=== PATIENT | male | born 1960 | race Caucasian/White ===

== ENCOUNTER 2017-10-15 08:06 | Emergency (ER) | payer SELFPAY ==
[~2017-10-15] VITALS: Ht 182.9 cm; Wt 86.2 kg
[~2017-10-15 08:06] MED LIST: CLIN300C8 PO; PRED-220 PO; TRAM50TA PO
[2017-10-15] MEDS ORDERED: IBUP400T18 PO (08:37)
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
--- NOTE | 2017-10-15 09:15 | RAD ---
Left elbow, 3 views, 10/15/2017: HISTORY: Fall, pain No fracture or dislocation is identified. A tiny calcification in the soft tissues along the lateral aspect of the lateral humeral epicondyle appears old and is probably tendinous. No joint effusion is seen. IMPRESSION: No acute bony abnormality is detected. Left wrist, 3 views, 10/15/2017: No fracture or dislocation is identified. A small well-corticated calcific density along the dorsal aspect of the carpal bones is compatible with old trauma. Minimal degenerative changes are noted. IMPRESSION: No acute bony abnormality is detected. Left hand, 10/15/2017: There are degenerative changes at scattered interphalangeal joints and the first CMC joint. No acute fracture or dislocation is identified. IMPRESSION: No acute bony abnormality is detected. Left shoulder, 3 views, 10/15/2017: No fracture or dislocation is identified. There is minimal degenerative change. IMPRESSION: No acute bony abnormality is detected. Electronically signed by: Agustin Fischer MD (10/15/2017 9:12 AM) [facility]
[2017-10-15 09:35] VITALS: BP 142/102
== END 2017-10-15 09:38 | disposition home or self-care (01) ==
LOC: ER 08:06
DX: M25.532 Pain in left wrist (principal); M25.522 Pain in left elbow; M25.512 Pain in left shoulder; I10 Essential (primary) hypertension; V29.9XXA Motorcycle rider (driver) (passenger) injured in unspecified traffic accident, initial encounter; Y93.55 Activity, bike riding; Y99.8 Other external cause status; Y92.89 Other specified places as the place of occurrence of the external cause
CPT/HCPCS: 73030; 73080; 73110; 73130; 99284

== ENCOUNTER 2019-07-11 09:02 | Emergency (ER) | payer SELFPAY ==
[~2019-07-11] VITALS: Ht 182.9 cm; Wt 83.6 kg
[~2019-07-11 09:02] MED LIST changes: +IBUP400T18 PO
[2019-07-11] MEDS ORDERED: ONDANSETRON PF 4 MG/2 ML VIAL. IVP ONE (09:45)
[2019-07-11] MEDS ORDERED: IV NORMAL SALINE 1,000ML 1,000 ML IV ONE (09:45)
[2019-07-11 09:57] LABS: BASO # 0.1 x10^3/uL (0.0-0.2); BASO % 1 % (0-3); EOS # 0.5 x10^3/uL (0.0-0.7); EOS % 5 % (0-3); HEMATOCRIT 51.6 % (39.0-53.0); HEMOGLOBIN 17.7 g/dL (13.0-17.5); LYMPH # 1.9 x10^3/uL (1.0-4.8); LYMPH % 20 % (24-48); MEAN CORPUSCULAR HEMOGLOBIN 33 pg (25-35); MEAN CORPUSCULAR HGB CONC 34 g/dL (31-37); MEAN CORPUSCULAR VOLUME 95 fL (79-100); MONO # 0.6 x10^3/uL (0.0-1.1); MONO % 7 % (0-9); NEUT # 6.6 x10^3uL (1.8-7.7); NEUT % 68 % (31-73); PLATELET COUNT 251 x10^3/uL (140-400); RED BLOOD COUNT 5.44 x10^6/uL (4.30-5.70); RED CELL DISTRIBUTION WIDTH 13.7 % (11.5-14.5); WHITE BLOOD COUNT 9.7 x10^3/uL (4.0-11.0)
[2019-07-11 10:01] LABS: CALCIUM 9.2 mg/dL (8.5-10.1); CREATININE 0.7 mg/dL (0.7-1.3); GFR 116.2; POTASSIUM 4.4 mmol/L (3.5-5.1)
[2019-07-11 10:07] LABS: ALBUMIN 3.9 g/dL (3.4-5.0); ALBUMIN/GLOBULIN RATIO 1.1 (1.0-1.7); TOTAL BILIRUBIN 0.3 mg/dL (0.2-1.0); TOTAL PROTEIN 7.5 g/dL (6.4-8.2)
--- NOTE | 2019-07-11 10:13 | PHYS DOC ---
Past History Past Medical History: Heart Disease, Hypertension Past Surgical History: Other Alcohol Use: None Drug Use: None Social History Narrative: pt stated no meth for 6 months General Adult EDM: Chief Complaint: MULTIPLE COMPLAINTS HPI: HPI: Patient is a 59-year-old male who is homeless presented to ER today with abdominal pain, cramping in nature associated with nausea and diarrhea. Patient denies any blood in his stool. Patient also complaining of a dry cough. Patient denies any fever. Patient denies being exposed to anybody who had the coronavirus. Patient has a history of IV drug abuse in the past. Patient has no history of diabetes, no history of heart disease. Patient do have history of hypertension. Review of Systems: Review of Systems: Constitutional: Denies fever or chills Eyes: Denies change in visual acuity HENT: Denies nasal congestion or sore throat Respiratory: Positive for cough,no shortness of breath Cardiovascular: Denies chest pain or edema GI: POSITIVE FOR abdominal pain, nausea, vomiting and diarrhea : Denies dysuria Musculoskeletal: Denies back pain or joint pain Integument: Denies rash Neurologic: Denies headache, focal weakness or sensory changes Endocrine: Denies polyuria or polydipsia Lymphatic: Denies swollen glands Psychiatric: Denies depression or anxiety Heart Score: HEART Score for Chest Pain: HEART Score for Chest Pain Response (Comments) Value History Slighlty/Non-Suspicious 0 ECG Normal 0 Age >45 - < 65 1 Risk Factors 1 or 2 Risk Factors 1 Troponin < Normal Limit 0 Total 2 Risk Factors: Risk Factors: DM, Current or recent (<one month) smoker, HTN, HLP, family history of CAD, obesity. Risk Scores: Score 0 - 3: 2.5% MACE over next 6 weeks - Discharge Home Score 4 - 6: 20.3% MACE over next 6 weeks - Admit for Clinical Observation Score 7 - 10: 72.7% MACE over next 6 weeks - Early Invasive Strategies Current Medications: Current Meds: Current Medications Medications (Trade) Dose Ordered Sig/Hamilton Start Time Stop Time Status Last Admin Dose Admin Ondansetron HCl (Zofran) 8 mg 1X ONCE 07/11/19 09:45 07/11/19 09:46 DC 07/11/19 09:45 8 MG Sodium Chloride 1,000 ml @ 1,000 mls/hr 1X ONCE 07/11/19 09:45 07/11/19 10:44 07/11/19 09:45 1,000 MLS/HR Allergies: Allergies: Allergies Coded Allergies Type Severity Reaction Last Updated Verified No Known Drug Allergies 05/03/15 No Physical Exam: PE: Constitutional: Well developed, well nourished, no acute distress, non-toxic appearance. [] HENT: Normocephalic, atraumatic, bilateral external ears normal, oropharynx moist, no oral exudates, nose normal. [] Eyes: PERRLA, EOMI, conjunctiva normal, no discharge. [] Neck: Normal range of motion, no tenderness, supple, no stridor. [] Cardiovascular:Heart rate regular rhythm, no murmur [] Lungs & Thorax: Bilateral breath sounds clear to auscultation [] Abdomen: Bowel sounds normal, soft, There is tenderness to palpation in lower abdominal area, no masses, no pulsatile masses. [] Skin: Warm, dry, no erythema, no rash. [] Back: No tenderness, no CVA tenderness. [] Extremities: No tenderness, no cyanosis, no clubbing, ROM intact, no edema. [] Neurologic: Alert and oriented X 3, normal motor function, normal sensory function, no focal deficits noted. [] Psychologic: Affect normal, judgement normal, mood normal. [] Current Patient Data: Labs: Laboratory Tests Test 07/11/19 09:33 White Blood Count 9.7 x10^3/uL (4.0-11.0) Red Blood Count 5.44 x10^6/uL (4.30-5.70) Hemoglobin 17.7 g/dL (13.0-17.5) H Hematocrit 51.6 % (39.0-53.0) Mean Corpuscular Volume 95 fL (79-100) Mean Corpuscular Hemoglobin 33 pg (25-35) Mean Corpuscular Hemoglobin Concent 34 g/dL (31-37) Red Cell Distribution Width 13.7 % (11.5-14.5) Platelet Count 251 x10^3/uL (140-400) Neutrophils (%) (Auto) 68 % (31-73) Lymphocytes (%) (Auto) 20 % (24-48) L Monocytes (%) (Auto) 7 % (0-9) Eosinophils (%) (Auto) 5 % (0-3) H Basophils (%) (Auto) 1 % (0-3) Neutrophils # (Auto) 6.6 x10^3uL (1.8-7.7) Lymphocytes # (Auto) 1.9 x10^3/uL (1.0-4.8) Monocytes # (Auto) 0.6 x10^3/uL (0.0-1.1) Eosinophils # (Auto) 0.5 x10^3/uL (0.0-0.7) Basophils # (Auto) 0.1 x10^3/uL (0.0-0.2) Sodium Level 139 mmol/L (136-145) Potassium Level 4.4 mmol/L (3.5-5.1) Chloride Level 103 mmol/L (98-107) Carbon Dioxide Level 26 mmol/L (21-32) Anion Gap 10 (6-14) Blood Urea Nitrogen 17 mg/dL (8-26) Creatinine 0.7 mg/dL (0.7-1.3) Estimated GFR (Cockcroft-Gault) 116.2 BUN/Creatinine Ratio 24 (6-20) H Glucose Level 100 mg/dL (70-99) H Calcium Level 9.2 mg/dL (8.5-10.1) Total Bilirubin 0.3 mg/dL (0.2-1.0) Aspartate Amino Transferase (AST) 22 U/L (15-37) Alanine Aminotransferase (ALT) 29 U/L (16-63) Alkaline Phosphatase 76 U/L (46-116) Total Protein 7.5 g/dL (6.4-8.2) Albumin 3.9 g/dL (3.4-5.0) Albumin/Globulin Ratio 1.1 (1.0-1.7) Lipase 262 U/L (73-393) Vital Signs: Vital Signs Date Time Temp Pulse Resp B/P (MAP) Pulse Ox O2 Delivery O2 Flow Rate FiO2 07/11/19 09:02 99.1 74 16 156/108 (124) 99 Room Air EKG: EKG: [] Radiology/Procedures: Radiology/Procedures: [][address] [address] IMAGING REPORT Signed PATIENT: FILIBERTO GRANADOS ACCOUNT: [id number] : 1960 LOCATION: ER AGE: 59 SEX: M EXAM STATUS: REG ER ORD. PHYSICIAN: IGOR MARK DO REASON: cough PROCEDURE: CHEST AP ONLY CHEST AP ONLY Clinical indications: Cough. COMPARISON: None available. Findings: No acute lung infiltrate or pleural effusion or pulmonary edema or lung mass or pneumothorax is seen. The heart size, pulmonary vasculature, mediastinum and both sridhar are unremarkable. Impression: No acute radiographic abnormality is seen. Electronically signed by: Julianna Charles MD (07/11/2019 10:37 AM) [facility] [place] DICTATED AND SIGNED BY: JULIANNA CHARLES MD DATE: 07/11/19 1037 CC: PCP,NO; IGOR MARK DO ~ [place] [address] IMAGING REPORT Signed PATIENT: FILIBERTO GRANADOS ACCOUNT: [id number] : 1960 LOCATION: ER AGE: 59 SEX: M EXAM STATUS: REG ER ORD. PHYSICIAN: IGOR MARK DO REASON: lower abdominal pain PROCEDURE: CT ABD PELV W/ IV CONTRST ONLY EXAM: Abdomen and pelvis CT with intravenous contrast. HISTORY: Pain. TECHNIQUE: Computed tomographic images of the abdomen and pelvis were obtained following the administration of intravenous contrast. Multiplanar reformatting was performed. *One or more of the following individualized dose reduction techniques were utilized for this examination: 1. Automated exposure control. 2. Adjustment of the mA and/or kV according to patient size. 3. Use of iterative reconstruction technique. COMPARISON: None. FINDINGS: Evaluation of the lower thorax demonstrates no infiltrate or pleural effusion. There are few tiny hypodense lesions within the liver. These are too small to characterize. The gallbladder, pancreas, spleen and adrenal glands are unremarkable. There are few nonobstructing renal stones. The urinary bladder is unremarkable. There are prominent air and fluid-filled loops of small bowel within the abdomen, primarily to left of midline. There is also fluid within the colon extending to the rectum. There is distal colonic wall thickening. There aren't few small distal colonic diverticula. There is no diverticulitis. There is no free air. There is no appendicitis. There is no lymphadenopathy. There is no suspicious osseous lesion. IMPRESSION: 1. Suspected enteritis and distal colitis with associated prominent fluid-filled loops of bowel which can be seen with diarrhea. No convincing transition point is seen to suggest small bowel obstruction. However, there may be a component of ileus. 2. Tiny hypodense lesions within the liver. These are too small to characterize and likely cysts or hemangiomas if there is no history of primary malignancy. 3. Bilateral nephrolithiasis. 4. Few colonic diverticula. Electronically signed by: Fiona Langston MD (07/11/2019 11:58 AM) [facility] DICTATED AND SIGNED BY: FIONA LANGSTON MD DATE: 07/11/19 4242 CC: PCPJESSICA; IGOR MARK DO ~ Course & Med Decision Making: Course & Med Decision Making Pertinent Labs and Imaging studies reviewed. (See chart for details) [] Dragon Disclaimer: Dragon Disclaimer: This electronic medical record was generated, in whole or in part, using a voice recognition dictation system. Departure Departure: Impression: Primary Impression: Colitis Disposition: HOME, SELF-CARE Condition: STABLE Referrals: PCPJESSICA (PCP) follow up with your doctor next week for reevaluation. Patient Instructions: Colitis Additional Instructions: Thank you for visiting our Emergency Department. We appreciate you trusting us with your care. If any additional problems come up don't hesitate to return to visit us. Please follow up with your primary care provider so they can plan additional care if needed and know about the problem that you had. If symptoms worsen come back to the Emergency Department. Any concerning symptoms that start such as chest pain, shortness of air, weakness or numbness on one side of the body, running high fevers or any other concerning symptoms return to the ER. Scripts Ondansetron Hcl (ZOFRAN) 8 Mg Tablet 1 TAB PO Q8HRS for nausea, #15 TAB 1 Refill Prov: IGOR MARK DO 07/11/19 Metronidazole (FLAGYL) 500 Mg Tablet 500 MG PO TID for colitis for 7 Days, #21 TAB Prov: IGOR MARK DO 07/11/19 Ciprofloxacin Hcl (CIPRO) 500 Mg Tablet 1 TAB PO BID for colitis for 7 Days, #14 TAB 0 Refills Prov: IGOR MARK DO 07/11/19 COVID-19 Assessment COVID-19 Patient Risks: Age 65 or older: No Sign of co-morbidity: No Exp to person + for COVID: No Exp to PUI: No Travel from affected area: No Lower respiratory symptoms: No Fever: No Other: No PPE Use: Full PPE with N95 mask or PAPR: Yes (PAPR WITH FULL PPE) IGOR MARK DO Jul 11, 2019 10:13
--- NOTE | 2019-07-11 10:40 | RAD ---
CHEST AP ONLY Clinical indications: Cough. COMPARISON: None available. Findings: No acute lung infiltrate or pleural effusion or pulmonary edema or lung mass or pneumothorax is seen. The heart size, pulmonary vasculature, mediastinum and both sridhar are unremarkable. Impression: No acute radiographic abnormality is seen. Electronically signed by: Dick Charles MD (07/11/2019 10:37 AM) [facility] [place]
[2019-07-11] MEDS ORDERED: CONTRAST GIVEN MC PRN (11:15)
[2019-07-11] MEDS ORDERED: IOHEXOL 300 MG/ML 75 ML VIAL. IV ONE (11:15)
[2019-07-11 11:17] LABS: INFLUENZA A PATIENT NEGATIVE (NEGATIVE); INFLUENZA B PATIENT NEGATIVE (NEGATIVE)
[2019-07-11 11:24] LABS: BILIRUBIN,URINE NEG (NEG); CLARITY,URINE CLEAR; COLOR,URINE YELLOW; GLUCOSE,URINE NEG (NEG)
[2019-07-11 11:25] LABS: BACTERIA,URINE 0 /HPF (0-FEW); NITRITE,URINE NEG (NEG); RBC,URINE 0 /HPF (0-2); SQUAMOUS EPITHELIAL CELL,UR FEW /LPF; UROBILINOGEN,URINE 0.2 mg/dL (0.2 mg/dL); WBC,URINE OCC /HPF (0-4)
--- NOTE | 2019-07-11 12:01 | RAD ---
EXAM: Abdomen and pelvis CT with intravenous contrast. HISTORY: Pain. TECHNIQUE: Computed tomographic images of the abdomen and pelvis were obtained following the administration of intravenous contrast. Multiplanar reformatting was performed. *One or more of the following individualized dose reduction techniques were utilized for this examination: 1. Automated exposure control. 2. Adjustment of the mA and/or kV according to patient size. 3. Use of iterative reconstruction technique. COMPARISON: None. FINDINGS: Evaluation of the lower thorax demonstrates no infiltrate or pleural effusion. There are few tiny hypodense lesions within the liver. These are too small to characterize. The gallbladder, pancreas, spleen and adrenal glands are unremarkable. There are few nonobstructing renal stones. The urinary bladder is unremarkable. There are prominent air and fluid-filled loops of small bowel within the abdomen, primarily to left of midline. There is also fluid within the colon extending to the rectum. There is distal colonic wall thickening. There aren't few small distal colonic diverticula. There is no diverticulitis. There is no free air. There is no appendicitis. There is no lymphadenopathy. There is no suspicious osseous lesion. IMPRESSION: 1. Suspected enteritis and distal colitis with associated prominent fluid-filled loops of bowel which can be seen with diarrhea. No convincing transition point is seen to suggest small bowel obstruction. However, there may be a component of ileus. 2. Tiny hypodense lesions within the liver. These are too small to characterize and likely cysts or hemangiomas if there is no history of primary malignancy. 3. Bilateral nephrolithiasis. 4. Few colonic diverticula. Electronically signed by: Fiona Shah MD (07/11/2019 11:58 AM) [facility]
[2019-07-11] MEDS ORDERED: metroNIDAZOLE 500 MG TABLET PO ONE (12:15)
[2019-07-11] MEDS ORDERED: CIPROFLOXACIN HCL 500 MG TABLET PO ONE (12:15)
[2019-07-11 12:43] VITALS: BP 153/89
[2019-07-11] MEDS ORDERED: METR500T PO (12:46)
[2019-07-11] MEDS ORDERED: ONDA8TAB9 PO (12:46)
[2019-07-11] MEDS ORDERED: CIPR500T94 PO (12:46)
--- NOTE | 2019-07-13 12:03 | EKG ---
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
== END 2019-07-11 13:30 | disposition home or self-care (01) ==
LOC: ER 09:02
DX: K52.9 Noninfective gastroenteritis and colitis, unspecified (principal); I11.9 Hypertensive heart disease without heart failure; Z59.0 Homelessness
CPT/HCPCS: 36415; 71045; 74177; 80053; 81001; 83605; 83690; 84484; 85025; 85610; 85730; 87040; 87070; 87804; 87880; 93005; 96361; 96374; 99285; J2405; Q9967; J7030

== ENCOUNTER 2020-05-10 07:29 | Emergency (ER) | payer SELFPAY ==
[~2020-05-10] VITALS: Ht 180.3 cm; Wt 90.9 kg
[~2020-05-10 07:29] MED LIST changes: +CIPR500T94 PO; -CLIN300C8 PO; +CLIN300C9 PO; +METR500T PO; +ONDA8TAB9 PO
[2020-05-10 07:49] VITALS: BP 143/99
[2020-05-10] MEDS ORDERED: VALA10008 PO (07:57)
--- NOTE | 2020-05-10 07:59 | PHYS DOC ---
Past History Past Medical History: Heart Disease, Hypertension Past Surgical History: Other Alcohol Use: None Drug Use: None General Adult EDM: Chief Complaint: Rash in groin and on fingers HPI: HPI: This is a pleasant 60-year-old male presenting with a rash on his fingers and groin started 2 days ago. It is a painful itchy rash. He denies any exposure to STDs. He denies any fevers. He denies any drainage from his penis. The pain is a mild to moderate pain which is without alleviating or exacerbating factors. He denies any other symptoms. Review of systems: He denies abdominal pain vomiting fevers or chills. All other review of system negative ED course: 60-year-old male presenting with a rash. Most likely diagnosis is herpes. We will give the patient valacyclovir. Given the likelihood that this is an STI, we will give him Rocephin and azithromycin to cover for other STIs. We will refer him to the health department today or tomorrow for sexually transmitted disease testing and education. The patient was then discharged to follow-up with the health department today or tomorrow and PCP within 1 to 2 days. The patient has been examined and was not found to have an emergency medical condition. The patient was then discharged home in stable condition to follow up with their primary care physician over the next 1-2 days. They were to return if their symptoms worsened or if they were concerned for any reason. They were also instructed to return to the emergency department if they were unable to get the recommended and appropriate follow-up. [id number] discharge instructions and return precautions were given. Patient's questions were answered to their satisfaction. Patient is comfortable with plan. Allergies: Allergies: Allergies Coded Allergies Type Severity Reaction Last Updated Verified No Known Drug Allergies 05/10/20 No Physical Exam: PE: Constitutional: Well developed, well nourished, no acute distress, non-toxic appearance. [] HENT: Normocephalic, atraumatic, bilateral external ears normal, oropharynx moist, no oral exudates, nose normal. [] Eyes: PERRLA, EOMI, conjunctiva normal, no discharge. [] Neck: Normal range of motion, no tenderness, supple, no stridor. [] Cardiovascular:Heart rate regular rhythm, no murmur [] Lungs & Thorax: Bilateral breath sounds clear to auscultation [] Abdomen: Bowel sounds normal, soft, no tenderness, no masses, no pulsatile masses. [] : Patient has a vesicular rash at the base of the penis. There is no overlying crusting. Multiple vesicles present. He does not have a lesion on the shaft or tip of the penis. There is no drainage. Normal testicle exam. Skin: Warm, dry. Back: No tenderness, no CVA tenderness. [] Extremities: Patient has small vesicles only volar aspect of the distal finger in his hands. There is mild erythematous region around it. Mildly tender to palpation. Otherwise nontender at the joints with normal range of motion. Palpable pulse with using cap refill. Atraumatic. Neurologic: Alert and oriented X 3, normal motor function, normal sensory function, no focal deficits noted. [] Psychologic: Affect normal, judgement normal, mood normal. [] EKG: EKG: [] Radiology/Procedures: Radiology/Procedures: [] Heart Score: Risk Factors: Risk Factors: DM, Current or recent (<one month) smoker, HTN, HLP, family history of CAD, obesity. Risk Scores: Score 0 - 3: 2.5% MACE over next 6 weeks - Discharge Home Score 4 - 6: 20.3% MACE over next 6 weeks - Admit for Clinical Observation Score 7 - 10: 72.7% MACE over next 6 weeks - Early Invasive Strategies Course & Med Decision Making: Course & Med Decision Making Pertinent Labs and Imaging studies reviewed. (See chart for details) [] Dragon Disclaimer: Dragon Disclaimer: This electronic medical record was generated, in whole or in part, using a voice recognition dictation system. Departure Departure: Impression: Primary Impression: STI (sexually transmitted infection) Disposition: 01 DC HOME SELF CARE/HOMELESS Condition: STABLE Referrals: PCP,NO (PCP) Patient Instructions: Sexually Transmitted Disease Additional Instructions: EMERGENCY DEPARTMENT GENERAL DISCHARGE INSTRUCTIONS You have been referred to the health department for sexually transmitted disease screening and testing. We recommend you make this appointment and go to the appointment within the next day or 2. Also you will need to follow-up with your primary physician in 1 to 2 days. Return to the emergency department if you have any new or concerning findings. Thank you for coming to [facility] Emergency Department (ED) today and trusting us with you care. We trust that you had a positive experience in our Emergency Department. If you wish to speak to the department management, you may call the Director at [phone]. YOUR FOLLOW UP INSTRUCTIONS ARE FOLLOWS: 1. Do you have a private Doctor? If you do not have a private doctor, please ask for a resource list of physicians or clinics that may be able to assist you with follow up care. 2. If a lab test or culture has been done and does not come back immediately, your results will be reviewed and you will be notified if you need a change in treatment. ADDITIONAL INSTRUCTIONS AND INFORMATION: 1. Your care today has been supervised by a physician who is specially trained in emergency care. Many problems require more than one evaluation for a complete diagnosis and treatment. We recommend that you schedule your follow up appointment as recommended to ensure complete treatment of you illness or injury. If you are unable to obtain follow up care and continue to have a problem, or if your condition worsens, we recommend that you return to the ED. 2. We are not able to safely determine your condition over the phone nor are we able to give sound medical advice over the phone. For these safety reasons, if you call for medical advice we will ask you to come to the ED for further evaluation. 3. If you have any questions regarding these discharge instructions please call the ED at [phone]. SAFETY INFORMATION: In the interest of safety, wellness, and injury prevention; we encourage you to wear your sealbelt, if you smoke; quite smoking, and we encourage family to use a protective helmet for bicycling and other sporting events that present an increased risk for head injury. IF YOUR SYMPTOMS WORSEN OR NEW SYMPTOMS DEVELOP, OR YOU HAVE CONCERNS ABOUT YOUR CONDITION; OR IF YOUR CONDITION WORSENS WHILE YOU ARE WAITING FOR YOUR FOLLOW UP APPOINTMENT; EITHER CONTACT YOUR PRIMARY CARE DOCTOR, THE PHYSICIAN WHOSE NAME AND NUMBER YOU WERE GIVEN, OR RETURN TO THE ED IMMEDIATELY. This condition should be evaluated by your primary care physician and any necessary consulting services for continued management within a few days (1-2) after discharge. Return to the emergency department if you have any new or concerning symptoms including but not limited to fever, chills, nausea, vomiting, intractable pain, any new rashes, chest pain, shortness of breath, uncontrolled bleeding, difficulty breathing, and/or vision loss. Scripts Valacyclovir Hcl (VALACYCLOVIR) 1,000 Mg Tablet 1 TAB PO BID for sti, #14 TAB Prov: FAVIAN FISHER MD 05/10/20 FAVIAN FISHER MD May 10, 2020 07:59
[2020-05-10] MEDS ORDERED: AZITHROMYCIN 250 MG TABLET. PO ONE (08:00)
== END 2020-05-10 08:47 | disposition home or self-care (01) ==
LOC: ER 07:29
DX: A64 Unspecified sexually transmitted disease (principal); I11.9 Hypertensive heart disease without heart failure
CPT/HCPCS: 96372; 99283; J0696

== ENCOUNTER 2020-07-09 05:39 | Emergency (ER) | payer OTHER ==
[2020-05-10 08:47] VITALS: BP 143/95
[~2020-07-09] VITALS: Ht 180.3 cm; Wt 90.9 kg
[~2020-07-09 05:39] MED LIST changes: +VALA10008 PO
--- NOTE | 2020-07-09 06:04 | PHYS DOC ---
Past History Past Medical History: Heart Disease, Hypertension Past Surgical History: Other Additional Past Surgical Histo: RIGHT ELBOW Alcohol Use: None Drug Use: None Adult General Chief Complaint Chief Complaint: SHOULDER INJURY HPI HPI Patient is a 60-year-old male presenting for right shoulder injury. Onset was approximately 48 hours ago while working. 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 After initially picking it up, "it got away from me" and patient lunged forward to catch log before it hit another coworker. Patient subsequently suffered immediate right shoulder pain. He was able to work the final hour half of his shift prior to going home. Since then, he has had focal pain to his right deltoid area without radiation. This has bothered him and affected his activities of daily living, he is taking "all the [id number] as you can think of". He is Review of Systems Review of Systems Fourteen body systems of review of systems have been reviewed. See HPI for pertinent positives and negative responses, other verduzco all other systems are negative, non-pertinent or non-contributory Allergies Allergies Allergies Coded Allergies Type Severity Reaction Last Updated Verified No Known Drug Allergies 05/10/20 No Physical Exam Physical Exam Constitutional: Well developed, well nourished, no acute distress, non-toxic appearance. Appears in pain HENT: Normocephalic, atraumatic, bilateral external ears normal, oropharynx moist, no oral exudates, nose normal. Eyes: PERRLA, EOMI, conjunctiva normal, no discharge. Neck: Normal range of motion, no tenderness, supple, no stridor. Cardiovascular: Heart rate regular, sinus rhythm, no murmurs rubs or gallops Lungs & Thorax: Bilateral breath sounds clear to auscultation Abdomen: Bowel sounds normal, soft, no tenderness, no masses, no pulsatile masses. Nonsurgical abdomen, no peritoneal signs Skin: Warm, dry, no erythema, no rash. Back: No tenderness, no CVA tenderness. Extremities: No no cyanosis, no clubbing, no no edema. There is tenderness over anterior portion of glenohumeral joint without any palpable or visual abnormalities. Arm is being held in flexed position towards body. Passive and active ranges of motion decreased due to pain without any significant abnormalities appreciated. No crepitus or obvious bony deformities. Neurologic: Alert and oriented X 3, normal motor & sensory function, no focal deficits noted. Right upper extremity medial, radial and ulnar nerves intact Psychologic: Anxious affect and mood Current Patient Data Vital Signs Vital Signs Date Time Temp Pulse Resp B/P (MAP) Pulse Ox O2 Delivery O2 Flow Rate FiO2 07/09/20 05:49 96.9 84 18 155/99 (117) 100 Room Air EKG EKG [] Radiology/Procedures Radiology/Procedures Right shoulder 3 views. HISTORY: Right anterior shoulder pain 3 views were taken of the right shoulder. There is not evidence of an acute fracture or dislocation or osseous abnormality. IMPRESSION: 1. No fracture or dislocation noted in the right shoulder. Electronically signed by: Bernabe Canchola MD (07/09/2020 6:56 AM) [id number] Heart Score C/O Chest Pain: No HEART Score for Chest Pain: HEART Score for Chest Pain Response (Comments) Value History Slighlty/Non-Suspicious 0 ECG Normal 0 Age >45 - < 65 1 Risk Factors 1 or 2 Risk Factors 1 Total 2 Risk Factors: Risk Factors: DM, Current or recent (<one month) smoker, HTN, HLP, family history of CAD, obesity. Risk Scores: Risk Factors: DM, Current or recent (<one month) smoker, HTN, HLP, family history of CAD, obesity. Course & Med Decision Making Course & Med Decision Making Comprehensive ER work-up consistent with MSK injury to right shoulder. Negative radiographs. I suspect strain versus strain versus other potential tear involving the rotator cuff Discussed with patient limited utility in further diagnostic work-up in ER setting. Supportive care advised. I did offer patient extremely limited dose of opioid pain medication for severe pain not controlled by [id number] Tylenol and/or ibuprofen use Advised patient to have close PCP follow-up for repeat evaluation. I disclose there might be utility in further imaging and/or intervention such as specialist consultation. Strict return precautions discussed with good understanding by patient, all questions and concerns addressed prior to ER departure Dragon Disclaimer Dragon Disclaimer This electronic medical record was generated, in whole or in part, using a voice recognition dictation system. Departure Departure: Impression: Primary Impression: Right shoulder pain Disposition: 01 DC HOME SELF CARE/HOMELESS Condition: STABLE Referrals: PCP,NO (PCP) FILIBERTO WARREN MD Patient Instructions: Shoulder Exercises, Generic, SportsMed, Shoulder Pain Additional Instructions: It is likely that you have experienced a sprain/strain to an associated ligament/tendon within the joint that is causing you pain. The best treatment for this injury is continued range of motion to prevent a frozen joint. A Rest, Ice, Compression, Elevation (RICE) strategy may also be helpful in the acute phase. As discussed, if symptoms do not improve there might be indication for further diagnostic work-up such as MRI and/or orthopedic referral for evaluation. If any concerning signs or symptoms present prior to outpatient follow-up please hesitate to come back for repeat evaluation. It was a pleasure to take care of you and I wish you the best going forward Scripts Hydrocodone/Acetaminophen (Hydrocodone-Acetamin 5-325 mg) 1 Each Tablet 1 EACH PO Q6-8HRS PRN for SEVERE PAIN 7-10, #10 TAB Prov: FLOWER LANDAVERDE DO 07/09/20 FLOWER LANDAVERDE DO Jul 09, 2020 06:04
[2020-07-09] MEDS ORDERED: HYDROcodone/APAP 5/325MG 1 TAB TABLET PO ONE (06:30)
--- NOTE | 2020-07-09 06:58 | RAD ---
Right shoulder 3 views. HISTORY: Right anterior shoulder pain 3 views were taken of the right shoulder. There is not evidence of an acute fracture or dislocation o r osseous abnormality. IMPRESSION: 1. No fracture or dislocation noted in the right shoulder. Electronically signed by: Bernabe Canchola MD (07/09/2020 6:56 AM) [id number]
[2020-07-09] MEDS ORDERED: HYDR-2759 PO (07:10)
== END 2020-07-09 07:19 | disposition home or self-care (01) ==
LOC: ER 05:39
DX: M25.511 Pain in right shoulder (principal); I11.9 Hypertensive heart disease without heart failure; X50.0XXA Overexertion from strenuous movement or load, initial encounter; Y93.89 Activity, other specified; Y92.89 Other specified places as the place of occurrence of the external cause; Y99.8 Other external cause status
CPT/HCPCS: 73030; 99283

== ENCOUNTER 2020-09-22 09:54 | Emergency (ER) | payer SELFPAY ==
[~2020-09-22] VITALS: Ht 182.9 cm; Wt 86.4 kg
[~2020-09-22 09:54] MED LIST changes: +HYDR-2759 PO
[2020-09-22 10:12] VITALS: BP 143/95
--- NOTE | 2020-09-22 10:49 | PHYS DOC ---
Past History Past Medical History: Heart Disease, Hypertension Past Surgical History: Other Additional Past Surgical Histo: RIGHT ELBOW Alcohol Use: None Drug Use: None General Adult EDM: Chief Complaint: INSECT BITE HPI: HPI: 60-year-old male presents with insect bite of the right medial lower leg. The patient states that he felt something bite him under his pants a couple of days ago. He scratched it off with his other foot. He never saw the insect. Yesterday he had 1/2 cm round area with a small black section in the middle. Today the black area has grown but the overall size of the wound is the same. He is concerned about infection or necrosis. Patient denies fever or chills. He has no other complaints this time. Review of Systems: Review of Systems: Constitutional: Denies fever or chills Eyes: Denies change in visual acuity HENT: Denies nasal congestion or sore throat Respiratory: Denies cough or shortness of breath Cardiovascular: Denies chest pain or edema GI: Denies abdominal pain, nausea, vomiting, bloody stools or diarrhea : Denies dysuria Musculoskeletal: Denies back pain or joint pain Integument: Insect bite Neurologic: Denies headache, focal weakness or sensory changes Endocrine: Denies polyuria or polydipsia Lymphatic: Denies swollen glands Psychiatric: Denies depression or anxiety Allergies: Allergies: Allergies Coded Allergies Type Severity Reaction Last Updated Verified No Known Drug Allergies 05/10/20 No Physical Exam: PE: Constitutional: Well developed, well nourished, no acute distress, non-toxic appearance. [] HENT: Normocephalic, atraumatic, bilateral external ears normal, oropharynx moist, no oral exudates, nose normal. [] Eyes: PERRLA, EOMI, conjunctiva normal, no discharge. [] Neck: Normal range of motion, no tenderness, supple, no stridor. [] Cardiovascular:Heart rate regular rhythm, no murmur [] Lungs & Thorax: Bilateral breath sounds clear to auscultation [] Abdomen: Bowel sounds normal, soft, no tenderness, no masses, no pulsatile masses. [] Skin: 1 cm ulcerative area with overlying scabbing. Normal pink borders without signs of cellulitis. [] Back: No tenderness, no CVA tenderness. [] Extremities: No tenderness, no cyanosis, no clubbing, ROM intact, no edema. [] Neurologic: Alert and oriented X 3, normal motor function, normal sensory fun ction, no focal deficits noted. [] Psychologic: Affect normal, judgement normal, mood normal. [] Current Patient Data: Vital Signs: Vital Signs Date Time Temp Pulse Resp B/P (MAP) Pulse Ox O2 Delivery O2 Flow Rate FiO2 09/22/20 10:12 96.7 82 18 143/95 (111) 95 Room Air EKG: EKG: [] Radiology/Procedures: Radiology/Procedures: [] Heart Score: C/O Chest Pain: N/A Risk Factors: Risk Factors: DM, Current or recent (<one month) smoker, HTN, HLP, family history of CAD, obesity. Risk Scores: Score 0 - 3: 2.5% MACE over next 6 weeks - Discharge Home Score 4 - 6: 20.3% MACE over next 6 weeks - Admit for Clinical Observation Score 7 - 10: 72.7% MACE over next 6 weeks - Early Invasive Strategies Course & Med Decision Making: Course & Med Decision Making Pertinent Labs and Imaging studies reviewed. (See chart for details) Patient appears to have a spider bite with local skin breakdown. There is appropriate scabbing over the wound. There is no surrounding sign of infection. Antibiotics are not indicated at this time. I have given the patient warning signs to look for. He is stable for discharge at this time. [] Dragon Disclaimer: Dragon Disclaimer: This electronic medical record was generated, in whole or in part, using a voice recognition dictation system. Departure Departure: Impression: Primary Impression: Venomous insect bite Qualified Codes: T63.481A - Toxic effect of venom of other arthropod, ac cidental (unintentional), initial encounter Disposition: HOME / SELF CARE / HOMELESS Condition: STABLE Referrals: PCP,NO (PCP) Patient Instructions: Insect Bite, [id number] DEANNA CARO DO Sep 22, 2020 10:49
== END 2020-09-22 11:04 | disposition home or self-care (01) ==
LOC: ER 09:54
DX: S80.861A Insect bite (nonvenomous), right lower leg, initial encounter (principal); W57.XXXA Bitten or stung by nonvenomous insect and other nonvenomous arthropods, initial encounter; I10 Essential (primary) hypertension; Y93.89 Activity, other specified; Y92.89 Other specified places as the place of occurrence of the external cause; Y99.8 Other external cause status
CPT/HCPCS: 99281

== ENCOUNTER 2020-11-03 10:20 | Emergency (ER) | payer OTHER ==
[~2020-11-03] VITALS: Ht 182.9 cm; Wt 90.9 kg
--- NOTE | 2020-11-03 11:03 | PHYS DOC ---
Past History Past Medical History: Heart Disease, Hypertension Past Surgical History: Other Additional Past Surgical Histo: RIGHT ELBOW Alcohol Use: None Drug Use: None General Adult EDM: Chief Complaint: UPPER EXTREMITY PAIN HPI: HPI: 60-year-old male presents with right shoulder pain. The patient was seen was 2 months ago after lifting a heavy log and having pain. He was determined to have no fractures. He did not have insurance at that time and has attempted to go to a public health clinic. Right before his appointment at that clinic, he received insurance coverage and was unable to be seen. He went to her primary care physician and is unsure if they ordered an MRI or referral to a specialist. He is just frustrated that the arm hurts all the time he does not know what to do. The pain is greatest with abduction. He cannot carry very much weight at all due to discomfort. There is pain along the upper shoulder distribution. He gets a tingling pain, but denies loss of sensation. He denies any additional injuries. Review of Systems: Review of Systems: Constitutional: Denies fever or chills Eyes: Denies change in visual acuity HENT: Denies nasal congestion or sore throat Respiratory: Denies cough or shortness of breath Cardiovascular: Denies chest pain or edema GI: Denies abdominal pain, nausea, vomiting, bloody stools or diarrhea : Denies dysuria Musculoskeletal: Right shoulder pain Integument: Denies rash Neurologic: Denies headache, focal weakness or sensory changes Endocrine: Denies polyuria or polydipsia Lymphatic: Denies swollen glands Psychiatric: Denies depression or anxiety Allergies: Allergies: Allergies Coded Allergies Type Severity Reaction Last Updated Verified No Known Drug Allergies 05/10/20 No Physical Exam: PE: Constitutional: Well developed, well nourished, no acute distress, non-toxic appearance. [] HENT: Normocephalic, atraumatic, bilateral external ears normal, oropharynx moist, no oral exudates, nose normal. [] Eyes: PERRLA, EOMI, conjunctiva normal, no discharge. [] Neck: Normal range of motion, no tenderness, supple, no stridor. [] Cardiovascular: Heart rate regular rhythm, no murmur [] Lungs & Thorax: Bilateral breath sounds clear to auscultation [] Abdomen: Bowel sounds normal, soft, no tenderness, no masses, no pulsatile masses. [] Skin: Warm, dry, no erythema, no rash. [] Back: No tenderness, no CVA tenderness. [] Extremities: Tenderness along the supraspinatus of the right shoulder, decreased strength with abduction. Pain with Yergason's but 5 out of 5 strength. [] Neurologic: Alert and oriented X 3, normal motor function, normal sensory function, no focal deficits noted. [] Psychologic: Affect normal, judgement normal, mood normal. [] Current Patient Data: Vital Signs: Vital Signs Date Time Temp Pulse Resp B/P (MAP) Pulse Ox O2 Delivery O2 Flow Rate FiO2 11/03/20 10:31 97.7 92 16 154/104 100 Room Air EKG: EKG: [] Radiology/Procedures: Radiology/Procedures: [] Heart Score: C/O Chest Pain: N/A Risk Factors: Risk Factors: DM, Current or recent (<one month) smoker, HTN, HLP, family history of CAD, obesity. Risk Scores: Score 0 - 3: 2.5% MACE over next 6 weeks - Discharge Home Score 4 - 6: 20.3% MACE over next 6 weeks - Admit for Clinical Observation Score 7 - 10: 72.7% MACE over next 6 weeks - Early Invasive Strategies Course & Med Decision Making: Course & Med Decision Making Pertinent Labs and Imaging studies reviewed. (See chart for details) The patient appears to have a right supraspinatus tendon disruption and possibly other injuries to the rotator cuff. I have advised that he continue to follow-up with his primary physician and potentially call the insurance company to see if he has any test authorizations pending. States verbal understanding. He is stable for discharge at this time. [] Dragon Disclaimer: Dragon Disclaimer: This electronic medical record was generated, in whole or in part, using a voice recognition dictation system. Departure Departure: Impression: Primary Impression: Tear of right supraspinatus tendon Disposition: HOME / SELF CARE / HOMELESS Condition: STABLE Referrals: MARIELA PRICE MD (PCP) Patient Instructions: Shoulder Pain, [id number] DEANNA CARO DO Nov 03, 2020 11:03
[2020-11-03 11:38] VITALS: BP 147/92
== END 2020-11-03 11:45 | disposition home or self-care (01) ==
LOC: ER 10:20
DX: S46.011A Strain of muscle(s) and tendon(s) of the rotator cuff of right shoulder, initial encounter (principal); I10 Essential (primary) hypertension; X50.0XXA Overexertion from strenuous movement or load, initial encounter; Y93.89 Activity, other specified; Y92.89 Other specified places as the place of occurrence of the external cause; Y99.8 Other external cause status
CPT/HCPCS: 99281